=== PATIENT | female | born 2000 | race Two or more races ===

== ENCOUNTER 2022-05-19 16:57 | Emergency (ER) | payer OTHER, SELFPAY ==
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
[2022-05-19 17:53] VITALS: BP 119/82; PULSE 102; RESP 20; TEMP 36.8; O2SAT 98; BMI 20.7
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
== END 2022-05-19 20:58 | disposition home or self-care (01) ==
PROVIDERS: Emergency Provider Emergency Medicine
DX: S00.12XA Contusion of left eyelid and periocular area, initial encounter (principal); Y04.2XXA Assault by strike against or bumped into by another person, initial encounter; R51.9 Headache, unspecified; Y93.89 Activity, other specified; Y92.480 Sidewalk as the place of occurrence of the external cause; Y99.9 Unspecified external cause status
CPT/HCPCS: 70450; 70486; 72125; 99282; 99284

== ENCOUNTER 2024-10-21 17:04 | Emergency (ER) | payer MEDICAID, SELFPAY ==
--- NOTE | ~2024-10-21 | US_ITS ---
CLINICAL HISTORY: pelvic pain ?iud dislodgement US pelvis transabdominal and transvaginal with Doppler Comparison: None provided Findings: Transabdominal scanning performed for overall anatomy. Transvaginal scanning performed for additional detail. Anteverted uterus is 7.3 cm length. Normal myometrium. No endometrial lesion, 5.0 mm thickness. Well-positioned IUD. Small volume fluid within the cervix. Right ovary 2.7 x 1.9 x 1.6 cm. Left ovary 2 x 1.3 x 1.3 cm. Normal color Doppler with arterial/venous spectral tracing of both ovaries. No free fluid. IMPRESSION: 1. Unremarkable pelvic ultrasound with no evidence of ovarian torsion. 2. Well-positioned IUD. This document has been electronically signed by: Codey Parrish MD on 10/21/2024 19:06:25
[2024-10-21 17:17] VITALS: BP 116/75; PULSE 81; RESP 16; TEMP 37.1; O2SAT 99; BMI 25.8
--- NOTE | 2024-10-21 17:17 | ED_ITS ---
HPI - General Adult General Chief complaint: Urogenital-Female Stated complaint: Painful IUD Time Seen by Provider: 10/21/24 21:34 Source: patient Mode of arrival: ambulatory Limitations: no limitations History of Present Illness ED Provider: Dr. Lulu Ellis HPI narrative: 23-year-old female with no significant past medical history presenting with pelvic pain that is been ongoing for about 7 days now. Describes sharp, stabbing pain in the suprapubic region that comes and goes. It has been also having some bleeding associated with the pain. Occasionally the bleeding is pink spotting and other times it is more heavy bleeding. She does not have regular periods since having an IUD placed about 6 years ago. Feels as though her IUD might be dislodged. Denies associated fever. Of note, she was diagnosed with bacterial vaginosis and a yeast infection about 5 days ago and has been taking metronidazole as prescribed for the last 4 days. Feels as though those symptoms are relatively unchanged including a white and yellow discharge that is copious. No associated vomiting or diarrhea. Last bowel movement was 2 days ago. No dysuria or hematuria. Was tested for other STDs at the urgent care where she was diagnosed with BV and was reportedly negative for chlamydia or gonorrhea. Related Data Previous Rx's ?Medication ?Instructions ?Recorded acetaminophen 300 mg-codeine 30 mg 1 tab PO Q8H PRN pa in #14 tabs 05/19/22 tablet Allergies Allergy/AdvReac Type Severity Reaction Status Date / Time No Known Allergies Allergy Verified 10/21/24 17:19 Review of Systems 2 Review of Systems: Yes all other systems are reviewed and are negative (As per HPI) [facility]LY [facility], [facility] Past Medical History Attestation statement: The following information was validated with the patient. [facility], [facility] Narrative: IUD, denies medical history Social History Social History Smoked in Last 30 Days: Yes Use of substances other than those prescribed or required for medical reasons: No Advance Directives: No Advance Directives Information Provided: No Do you have a plan to hurt others: No Plan Physical Exam ED Vital Signs: Vital Signs - 24 hr 10/21/24 17:17 10/21/24 20:59 Temperature 98.7 F 98.3 F Pulse Rate 81 81 Respiratory Rate 16 20 Blood Pressure 116/75 117/71 Pulse Oximetry 99 99 Oxygen Delivery Method Room Air Room Air BMI result Body Mass Index 25.8 Constitutional: ?Well-appearing, no acute distress HEENT: ?No lymphadenopathy, neck is supple, trachea midline, PERRLA, EOMI, no nystagmus Chest: ?Equal rise, no crepitus, no deformities Respiratory: ?Lungs are clear to auscultation bilaterally, no wheezes/rales/rhonchi Cardio: ?Regular rate and rhythm, no murmurs rubs or gallops, peripheral pulses strong GI: ?Soft, nondistended, nontender to palpation, positive bowel sounds in all quadrants : Deferred Skin: ?Warm, dry, no rashes Musculoskeletal: ?No deformities, normal tone Neuro: ?Alert and oriented, cranial nerves 2-12 intact, equal strength and sensation in bilateral upper and lower extremities Psych: ?Normal affect, appropriate mood, no visual or auditory hallucinations Course Course Course Narrative: 10/21/24 [address] LAWR[address] Rasheed This is a Rapid Medical Examination (RME) performed by Shazia Alanis PA-C in triage. Full HPI, ROS, assessment and treatment plan per primary provider in the Main ED. Hx: 24 yo F here requesting IUD removal. reports IUD placed 6 years ago. she has never been able to feel the strings. over the last week, reports sharp pelvic pain. unsure if IUD became dislodged. she is currently sexually active. Plan: labs, hcg, pelvic us Medications Administered Discontinued Medications Generic Name Dose Route Start Last Admin Trade Name Freq PRN Reason Stop Dose Admin Ibuprofen 600 mg 10/21/24 22:03 10/21/24 22:29 Ibuprofen 600 Mg Tablet PO 10/21/24 22:04 600 mg ONCE ONE Administration Medical Decision Making Medical Decision Making [facility] Narrative: This patient presents today with a chief complaint of pelvic pain. Differential diagnosis is broad and would include ovarian torsion, PID, TOA, if ectopic , pyelonephritis, kidney stone, UTI among many others. A broad-based workup based on history and physical exam was obtained. Patient was given Motrin for pain control. 10:30 p.m. patient has no evidence of PID on exam. No cervical motion tenderness or abnormality of the cervix. She does have a moderate amount of yellow and white cottage cheese discharge in the vaginal vault. No lesions noted. Very low suspicion for PID at this point. Urinalysis is negative for infection. I suspect that she is having her menstrual cycle and that is where the pelvic cramping is coming from. Discuss this with her at length. [facility] or through an OBGYN. I have given her the referral to call around for an OBGYN. Discharged home in stable condition Differential Diagnosis Differential Diagnoses: The differential diagnosis associated with the presentation includes (As above) Lab Data MDM Lab Attestation statement: I reviewed the patient's lab results. 10/21/24 17:31 10/21/24 17:31 Labs: Lab Results 10/21/24 10/21/24 Range/Units 17:31 22:30 WBC 7.1 (4.8-10.8) X10*3/uL RBC 4.15 L (4.20-5.50) X10*6/uL Hgb 13.3 (12.0-16.0) g/dl Hct 38.0 (37.0-47.0) % MCV 91.6 (80.0-98.0) fL MCH 32.0 (27.0-33.0) pg MCHC 35.0 (31.0-35.0) g/dl RDW 12.4 (11.0-16.0) % Plt Count 323 (160-400) X10*3/uL MPV 8.4 L (9.4-12.3) fL Immature Gran % (Auto) 0.3 (0.0-0.4) % Neut % (Auto) 59.0 (45-73) % Lymph % (Auto) 29.1 (20-40) % Banner % (Auto) 6.7 (2-11) % Eos % (Auto) 4.1 H (0-4) % Baso % (Auto) 0.8 (0-2) % Lymph # (Auto) 2.1 (1.2-4.9) X10*3/uL Banner # (Auto) 0.5 (0.1-1.2) X10*3/uL Eos # (Auto) 0.3 (0.0-0.4) X10*3/uL Baso # (Auto) 0.1 (0.0-0.2) X10*3/uL Abs Immat Gran (auto) 0.02 (0.00-0.03) X10*3/uL Absolute Neuts (auto) 4.2 (2.0-8.3) x10*3/uL Absolute Nucleated RBC 0.000 (0.0-0.012) X10*3/uL Nucleated RBC % (auto) 0.0 (0.0-0.2) /100WBC Sodium 137 (135-145) mmol/L Potassium 4.2 (3.3-5.1) mmol/L Chloride 107 (96-108) mmol/L Carbon Dioxide 24 (22-29) mmol/L Anion Gap 10 L (12-20) BUN 14 (9-16) mg/dL Creatinine 0.84 (0.5-1.4) mg/dL Estim Creat Clear Calc 101.6 Estimated GFR > 60 Random Glucose 95 (60-115) mg/dL Calcium 9.3 (8.4-10.2) mg/dL Magnesium 1.9 (1.6-2.6) mg/dL Total Bilirubin 0.4 (0.0-1.0) mg/dL AST 25 (5-31) U/L ALT 24 (0-31) U/L Alkaline Phosphatase 64 (39-117) U/L Total Protein 7.7 (6.5-8.0) g/dL Albumin 4.6 (3.5-5.0) g/dL Beta HCG, Quant < 2 mIU/mL Urine Color Yellow Urine Appearance Clear Urine pH 5.5 (5.0-9.0) Ur Specific [place] 1.015 (1.005-1.025) Urine Protein Negative (Neg-Trace) mg/dL Urine Glucose (UA) Negative (Negative) mg/dL Urine Ketones 15 (Negative) mg/dL Urine Blood Negative (Negative) Urine Nitrite Negative (Negative) Ur Leukocyte Esterase Negative (Negative) Radiology Impression Discussion of test interpretation with radiology: I have reviewed the radiologist's reading. Radiologist Impression: US pelvis transabdominal and transvaginal with Doppler Comparison: None provided Findings: Transabdominal scanning performed for overall anatomy. Transvaginal scanning performed for additional detail. Anteverted uterus is 7.3 cm length. Normal myometrium. No endometrial lesion, 5.0 mm thickness. Well-positioned IUD. Small volume fluid within the cervix. Right ovary 2.7 x 1.9 x 1.6 cm. Left ovary 2 x 1.3 x 1.3 cm. Normal color Doppler with arterial/venous spectral tracing of both ovaries. No free fluid. IMPRESSION: 1. Unremarkable pelvic ultrasound with no evidence of ovarian torsion. 2. Well-positioned IUD. This document has been electronically signed by: Codey Parrish MD on 10/21/2024 19:06:25 Independent Historian Clinical information obtained from an independent historian. History obtained from or confirmed by: Friend Prescription Management I considered prescription management with: Antibiotic (Patient currently taking metronidazole) Discharge Plan Discharge Clinical Impression: Bacterial vaginosis, Pelvic pain Patient Disposition: Home, Self-Care Additional Instructions: Continue taking your metronidazole as prescribed. Finish the course. Do not stop this medication early if you start to feel better. Continue to use Tylenol and Motrin for pain. Return to the ER with any new or worsening symptoms including: Fevers greater than 100?, worsening pain despite medications and antibiotics, vomiting, any new symptom that concerns you. Call 911 with any medical emergency. Rest and stay hydrated. Pelvic rest such as refraining from intercourse is advised when you are having pain. It is important you follow up with your OBGYN or primary care doctor to monitor your symptoms. If you do not have an OBGYN please see the list below. [facility] [place] [phone] [facility] [id number] [place] [phone] [facility] [place] [phone] Prescriptions: No Action acetaminophen-codeine 300-30 mg tablet 1 tab PO Q8H PRN (Reason: pain) Qty: 14 0RF Print Language: Tongan
[2024-10-21 17:36] LABS: MANUAL DIFF FLAG NO
[2024-10-21 17:40] LABS: Hematocrit 38.0 % (37.0-47.0); Hemoglobin 13.3 g/dl (12.0-16.0); Imm Gran Abs Auto 0.02 X10*3/uL (0.00-0.03); Imm Gran Pct Auto 0.3 % (0.0-0.4); Lymphocytes Absolute Auto 2.1 X10*3/uL (1.2-4.9); Mean Corpuscular HGB Conc 35.0 g/dl (31.0-35.0); Mean Corpuscular Hemoglobin 32.0 pg (27.0-33.0); Mean Corpuscular Volume 91.6 fL (80.0-98.0); NRBC Abs Auto 0.000 X10*3/uL (0.0-0.012); NRBC Pct Auto 0.0 /100WBC (0.0-0.2); Platelet Count 323 X10*3/uL (160-400); Red Blood Count 4.15 X10*6/uL (4.20-5.50); White Blood Count 7.1 X10*3/uL (4.8-10.8)
[2024-10-21 18:00] LABS: Alanine Aminotransferase 24 U/L (0-31); Albumin Level 4.6 g/dL (3.5-5.0); Alkaline Phosphatase 64 U/L (39-117); Anion Gap 10 (12-20); Aspartate Amino Transferase 25 U/L (5-31); Blood Urea Nitrogen 14 mg/dL (9-16); Calcium 9.3 mg/dL (8.4-10.2); Carbon Dioxide 24 mmol/L (22-29); Chloride 107 mmol/L (96-108); Creatinine Clr Calc Pharmacy 101.6; Estimated Glomerular Filt Rate > 60; Magnesium 1.9 mg/dL (1.6-2.6); Potassium 4.2 mmol/L (3.3-5.1); Sodium 137 mmol/L (135-145); Total Protein 7.7 g/dL (6.5-8.0)
--- OUTSIDE RECORDS SUMMARY | 2024-10-21 20:47 | XMS_ITS | Clinical Summary ---
Author Organization [employer] Address [address] [place] [address] Care Team Providers Care [employer] Name Role Phone Unavailable Primary Care Provider Unavailabl e Social History Tobacco Use Types Packs/Day Years Used Date Smoking Tobacco: Never Assessed Comments Unknown Sex and Gender Information Value Date Recorded Sex Assigned at Not on file Legal Sex Female 1:45 PM EST Gender Identity Not on file Sexual Orientation Not on file Plan of Treatment Health Maintenance Due Date Last Done Comments Depression Screening 2000 HIV Screening 2000 SDOH Screening 2000 Disability Screening 2000 Alcohol/Substance Use Screening 2012 Tobacco Screening 2012 Family Planning (PISQ) 2015 HPV Vaccines (1 - 3-dose series) 2015 Hepatitis C Screening 2018 DTaP/Tdap/Td Vaccines (1 - Tdap) 2019 Hepatitis B Vaccines (1 of 3 - 19+ 3-dose series) 2019 Pap Smear 2021 COVID-19 Vaccine (1 - 2023-2 5 season) 2023 Influenza Vaccine (#1) 2024 Zoster Vaccines (1 of 2) 2050 RSV Patients and Pa tients Aged 60 years or older (1 - 1-dose 75+ series) 2075 HIB Vaccines Aged Out No longer eligi ble based on patient's age to complete this topic Hepatitis A Vaccines Aged Out No long er eligible based on patient's age to complete this topic IPV Vaccines Aged Out No longer eligi ble based on patient's age to complete this topic Meningococcal B Vaccine Aged Out No l onger eligible based on patient's age to complete this topic Meningococcal Vaccine Aged Out No madelin joe eligible based on patient's age to complete this topic Pneumococcal Vaccine: Pediat rics (0 to 5 Years) and At-Risk Patients (6 to 49) Years Aged Out No longer eligible b ased on patient's age to complete this topic RSV under 20 months Aged Out No longe r eligible based on patient's age to complete this topic Rotavirus Vaccines Aged Out No longer eligible based on patient's age to complete this topic
[2024-10-21 20:59] VITALS: BP 117/71; PULSE 81; RESP 20; TEMP 36.8; O2SAT 99
[2024-10-21 22:39] LABS: Appearance Urine Clear; Glucose Urine UA Negative (Negative); PH 5.5 (5.0-9.0); Specific Gravity - Urine 1.015 (1.005-1.025)
[2024-10-21 23:11] VITALS: BP 127/64; PULSE 64; RESP 16; TEMP 36.7; O2SAT 99
[2024-10-21 23:19] VITALS: BP 127/64; PULSE 64; RESP 16; TEMP 36.7; O2SAT 99
== END 2024-10-21 23:19 | disposition home or self-care (01) ==
PROVIDERS: Physician Assistant Medical; Emergency Provider Emergency Medicine
DX: N76.0 Acute vaginitis (principal); R10.2 Pelvic and perineal pain
CPT/HCPCS: 36415; 76830; 76856; 80053; 81003; 83735; 84702; 85025; 99284

== ENCOUNTER → 2024-10-21 17:18 | Outpatient (BNV) | payer OTHER, SELFPAY | PROVIDERS: Visit Provider Radiology Vascular & Interventional Radiology | DX: R10.2 Pelvic and perineal pain (principal) | CPT/HCPCS: 76830; 76856 ==

== ENCOUNTER 2024-11-07 02:46 | Emergency (ER) | payer MEDICAID, SELFPAY ==
--- NOTE | ~2024-11-07 | XR_ITS ---
CLINICAL HISTORY: fall swelling 2 views right ankle Comparison: None provided Findings: Study is limited by lack of a lateral view. There is lateral soft tissue swelling. There is no acute fracture. There is a small corticated ossific density adjacent to the medial malleolus. Joint spaces and joint alignment appears normal. Impression: Study is limited by lack of a lateral view. No acute osseous abnormality. This document has been electronically signed by: Georgi Batista MD on 11/07/2024 05:03:37
[2024-11-07 03:06] VITALS: BP 126/64; PULSE 94; O2SAT 96
[2024-11-07 03:10] VITALS: BP 107/59; PULSE 116; RESP 16; TEMP 37.2; O2SAT 97; BMI 25.8
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
[2024-11-07 06:00] VITALS: BP 105/54; PULSE 83; RESP 16; TEMP 37; O2SAT 99
[2024-11-07 06:40] VITALS: BP 105/54; PULSE 83; RESP 16; TEMP 37; O2SAT 99
== END 2024-11-07 06:45 | disposition home or self-care (01) ==
PROVIDERS: Emergency Provider Emergency Medicine
DX: S93.401A Sprain of unspecified ligament of right ankle, initial encounter (principal); X58.XXXA Exposure to other specified factors, initial encounter; M25.571 Pain in right ankle and joints of right foot; Y93.9 Activity, unspecified; Y92.9 Unspecified place or not applicable; Y99.9 Unspecified external cause status
CPT/HCPCS: 73610; 99283

== ENCOUNTER → 2024-11-07 03:09 | Outpatient (BNV) | payer MEDICAID, SELFPAY | PROVIDERS: Emergency Provider Emergency Medicine; Visit Provider Radiology Diagnostic Radiology | DX: R22.41 Localized swelling, mass and lump, right lower limb (principal) | CPT/HCPCS: 73610 ==